=== PATIENT | male | born 1955 | race Caucasian/White ===

== ENCOUNTER 2016-06-28 07:22 | Observation (INO) | payer BC, OTHER ==
[2016-06-28] MEDS ORDERED: NITROGLYCERIN OINT 1 INCH/GM PACKET TOPICAL STA (07:41)
[2016-06-28] MEDS ORDERED: ASPIRIN 81 MG CHEW PO STA (07:41)
[2016-06-28] MEDS ORDERED: NITROGLYCERIN SL TABS 0.4 MG TAB SUBLINGUAL STA (07:41)
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
[2016-06-28 08:19] LABS: Basophils % (A) 1 %; CH 31.5; CHCM 35.1; Eosinophils % (A) 1 %; HCT 44.5 % (39.0-53.0); HDW 2.38; Luc # (Auto) 0.12; Luc % (Auto) 2; Lymphocytes # (A) 2.1 k/uL (1.0-4.8); Lymphocytes % (A) 38 %; MCH 30.3 pg (25.0-35.0); MCHC 33.6 g/dL (31.0-37.0); Mean Platelet Volume 7.2; Monocytes # (A) 0.4 k/uL (0-1.0); Monocytes % (A) 7 %; Neutrophils # (A) 2.9 k/uL (1.3-7.7); Neutrophils % (A) 52 %; RBC 4.94 m/uL (4.30-5.90); RDW 14.5 % (11.5-15.5); WBC 5.5 k/uL (3.8-10.6)
[2016-06-28 08:28] LABS: ALT 28 U/L (21-72); AST 23 U/L (17-59); Alkaline Phosphatase 95 U/L (38-126); Anion Gap 10 mmol/L; Blood Urea Nitrogen 20 mg/dL (9-20); Calcium 9.3 mg/dL (8.4-10.2); Carbon Dioxide 23 mmol/L (22-30); Chloride 107 mmol/L (98-107); Glucose 176 mg/dL (74-99); Non-African American GFR(MDRD) >60 (>60 ml/min/1.73 sqM); Potassium 4.2 mmol/L (3.5-5.1); Sodium 140 mmol/L (137-145); Total Bilirubin 0.4 mg/dL (0.2-1.3); Total Protein 6.9 g/dL (6.3-8.2)
--- NOTE | 2016-06-28 08:29 | XR ---
EXAMINATION TYPE: XR chest 2V DATE OF EXAM: 06/28/2016 8:20 AM COMPARISON: Prior chest x-ray 13 April 2016 HISTORY: Shortness of breath TECHNIQUE: Frontal and lateral views of the chest are obtained. FINDINGS: Some minimal patchy basilar density is noted. No pneumothorax or pleural effusion. There a re overlying cardiac leads. Surgical clips present in the upper abdomen. Cardiomediastinal silhouette , pulmonary vascularity and beatriz are stable. IMPRESSION: Suspect some minimal basilar atelectasis. Follow-up as indicated.
[2016-06-28 08:38] LABS: Prothrombin Time 10.6 sec (9.0-12.0)
[2016-06-28 08:39] LABS: Creatine Kinase 351 U/L (55-170)
[2016-06-28 08:41] LABS: Partial Thromboplastin Time 21.3 sec (22.0-30.0)
[2016-06-28 08:51] LABS: Creatine Kinase MB 2.2 ng/mL (0.0-2.4); Troponin I <0.012 ng/mL (0.000-0.034)
[2016-06-28] MEDS ORDERED: IPRATROPIUM-ALBUTEROL 3 ML NEB INHALATION STA (08:52)
[2016-06-28 10:00] LABS: Amylase 56 U/L (30-110)
[2016-06-28] MEDS ORDERED: LORazepam 2 MG/ML SYRINGE IV STA (10:48)
[2016-06-28] MEDS ORDERED: NITROGLYCERIN SL TABS 0.4 MG TAB SUBLINGUAL PRN (10:51)
[2016-06-28] MEDS ORDERED: RX INFO: IV CONTRAST WAS GIVEN 1 EACH MISC MISCELLANE PRN (10:52)
--- NOTE | 2016-06-28 12:12 | CT ---
EXAMINATION TYPE: CT angio thoracic/abd aorta DATE OF EXAM: 06/28/2016 12:05 PM COMPARISON: NONE HISTORY: c/o chest pain and difficulty breathing CT DLP: 849.6 mGycm Automated exposure control for dose reduction was used. TECHNIQUE: Performed without and with IV Contrast, patient injected with 100 mL of Omnipaque 350. 3D reconstructed images are created on an independent workstation and reviewed.. FINDINGS: No aortic dissection is identified. No aortic aneurysm is evident. Some minimal compressive atelectasis at the right lung base is present. Portion of the thyroid visual ized is normal. Axillary regions are normal. No enlarged adenopathy is evident. The ascending thoraci c aorta at the level of the main pulmonary artery is 3.1 cm. The main pulmonary artery the bifurcatio n is 3.[address] ABDOMEN: Noncontrast imaging through the liver spleen pancreas kidneys appear normal. The gallblad ru surgically absent. Following contrast administration suspicious enhancement is not identified. Sp lenule is present. The adrenal glands are normal. Loops of bowel without contrast are normal. A infer ior pole right renal cyst measuring 2.4 cm is present inferior pole right kidney CT PELVIS: Superior portion of the pelvis within the [id number] is unremarkable the appendix is vi sualized is normal IMPRESSION: NORMAL THORACIC AND ABDOMINAL AORTA.
[2016-06-28] MEDS: NITROGLYCERIN OINT 1 INCH/GM PACKET TOPICAL SCH ×2 (14:06→20:52)
[2016-06-28] MEDS ORDERED: ACETAMINOPHEN TAB 325 MG TAB PO PRN (14:51)
[2016-06-28 15:14] LABS: Creatine Kinase 300 U/L (55-170)
[2016-06-28 15:27] LABS: Creatine Kinase MB 1.5 ng/mL (0.0-2.4); Troponin I <0.012 ng/mL (0.000-0.034)
[2016-06-28 17:01] LABS: Glucose,Whole Blood 129 mg/dL (75-99)
[2016-06-28] MEDS: metFORMIN 500 MG TAB PO SCH ×2 (17:32→23:35)
[2016-06-28] MEDS ORDERED: INSULIN GLARGINE 100 UNIT/ML 10 ML VIAL SQ SCH (21:00)
[2016-06-28 21:33] LABS: Creatine Kinase 260 U/L (55-170)
[2016-06-28 21:47] LABS: Creatine Kinase MB 1.3 ng/mL (0.0-2.4); Troponin I <0.012 ng/mL (0.000-0.034)
[2016-06-29] MEDS: METOPROLOL TARTRATE 12.5 MG TAB PO SCH ×2 (02:04→11:33)
[2016-06-29 02:56] LABS: Cholesterol 219 mg/dL (<200); HDL Cholesterol 37 mg/dL (40-60); Triglycerides 184 mg/dL (<150)
[2016-06-29] MEDS: NITROGLYCERIN OINT 1 INCH/GM PACKET TOPICAL SCH (06:34)
--- NOTE | 2016-06-29 06:53 | CONS ---
DATE OF CONSULTATION: 06/28/2016 REASON FOR THE CONSULTATION: Chest discomfort. HISTORY OF PRESENT ILLNESS: This is a pleasant 60-year-old male patient with a past medical history significant for diabetes as well as hypertension presented to the hospital complaining of chest discomfort. He just was admitted to the hospital in March of 2016 where he presented with chest discomfort and at that point he underwent an echocardiogram which came in to be unremarkable as well as dobutamine stress echocardiogram which came in to be also unremarkable for ischemia. He states that he underwent a heart catheterization at [facility] about 2 years ago and that was unremarkable. Patient describes chest discomfort, as a sharp kind of discomfort, in the middle of the chest, without any radiation to the arms, neck or shoulders and without any associated symptoms. The EKG showed sinus mechanism without any significant ST or T wave abnormalities. The cardiac enzymes were checked and came in to be unremarkable. As a matter of fact, the patient underwent a CTA of the chest and abdominal aorta and that came in to be unremarkable. Past medical history includes: 1. Diabetes. 2. Systemic hypertension. SOCIAL HISTORY: The patient does not smoke or drink alcohol. Current medications include: 1. Aspirin 81 mg p.o. daily. 2. Insulin. 3. Lisinopril 5 mg p.o. daily. 4. Metformin 500 mg p.o. t.i.d. 5. Metoprolol 12.5 mg p.o. b.i.d. 6. Spiriva 1 puff inhalation daily. PHYSICAL EXAMINATION: GENERAL APPEARANCE: The patient does not look in any pain or any distress. His vitals showed the following: Temp is 98.2, heart rate 58, respiratory rate 16, pressure is 102/57 mmHg. Cardiovascular examination shows regular rate and rhythm. Respiratory examination shows clear breathing sounds bilaterally. EXTREMITY EXAMINATION: No pedal edema was noted. DIAGNOSTIC WORKUP: The EKG as described above showed sinus mechanism without any significant ST or T wave abnormalities. The chest x-ray showed minimal basilar atelectasis. Blood work showed the following: WBC is 5.5, hemoglobin 15.0, platelet is 254. D-dimer is 0.35. Sodium 140, potassium 4.2, BUN 20, creatinine 1.05. Troponin came in to be unremarkable. ASSESSMENT: 1. Atypical chest discomfort. 2. Diabetes type II. 3. Systemic hypertension. PLAN: 1. The cardiac workup came in to be unremarkable including the EKG and cardiac enzymes. 2. I will obtain a copy of the heart catheterization which was performed 2 years ago at [facility]. 3. Please note that the patient just underwent a stress test in March 2016 and that came in to be unremarkable. 4. I would not recommend proceeding with any tests at this point of time. 5. Will continue following up with him.
[2016-06-29 07:04] LABS: Glucose,Whole Blood 117 mg/dL (75-99)
[2016-06-29] MEDS ORDERED: TIOTROPIUM 18 MCG/PUFF INHALER INHALATION SCH (08:00)
[2016-06-29] MEDS ORDERED: LISINOPRIL 5 MG TAB PO SCH (09:00)
[2016-06-29] MEDS ORDERED: ASPIRIN 325 MG TAB PO SCH (09:00)
[2016-06-29] MEDS ORDERED: ASPIRIN 81 MG CHEW PO SCH (09:00)
--- NOTE | 2016-06-29 09:03 | P.PN ---
Subjective Principal diagnosis: Chest pain This is a pleasant 60-year-old gentleman with a past medical history significant for diabetes and hypertension presented to the emergency room complaining of chest discomfort. He was admitted to the hospital in March 2016 with a chest discomfort and underwent dobutamine stress echocardiogram which came in to be unremarkable. He presented back to the hospital this time complaining of atypical chest discomfort and also complaining of epigastric discomfort. The cardiac workup of EKG and enzymes came in to be unremarkable. He underwent a CTA of the chest and abdomen which showed normal aorta. He stated that he underwent a heart catheterization at [facility] about 2 years ago. We contacted the hospital and we did not get anything and we'll try to contact him again to obtain a copy of the heart catheterization. In the mean while the patient need to get up and around to see if he is symptomatic. Objective - Vital Signs Vital signs: Vital Signs Temp 97.9 F 06/29/16 08:00 Pulse 66 06/29/16 08:00 Resp 18 06/29/16 08:00 BP 109/62 06/29/16 08:00 Pulse Ox 96 06/29/16 08:00 Intake & Output 06/28/16 06/29/16 06/29/16 18:59 06:59 18:59 Intake Total 836 Balance 836 Weight 90.7 kg Intake: Oral 836 Other: Voiding Method Toilet Toilet # Voids 2 - Constitutional General appearance: Present: no acute distress - Respiratory Respiratory: bilateral: CTA - Cardiovascular Rhythm: regular Heart sounds: normal: S1, S2 - Labs CBC & Chem 7: 06/28/16 08:03 06/28/16 08:03 Labs: Abnormal Lab Results - Last 24 Hours (Table) 06/28/16 06/28/16 06/28/16 Range/Units 14:05 16:59 20:41 POC Glucose (mg/dL) 129 H (75-99) mg/dL Total Creatine Kinase 300 H 260 H (55-170) U/L 06/29/16 Range/Units 07:01 POC Glucose (mg/dL) 117 H (75-99) mg/dL Total Creatine Kinase (55-170) U/L Assessment and Plan Plan: Assessment #1 atypical chest discomfort #2 epigastric discomfort #3 multiple comorbid conditions Plan #1 the patient was ruled out for acute coronary event #2 I'll obtain a copy of the heart catheterization #3 get the patient up and around
[2016-06-29] MEDS ORDERED: ENOXAPARIN 40 MG/0.4 ML SYRINGE SQ SCH (11:00)
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
[2016-06-29] MEDS: metFORMIN 500 MG TAB PO SCH (11:34)
[2016-06-29 11:58] VITALS: BP 120/76; PULSE 62; RESP 16; TEMP 98.1
[2016-06-29 12:13] LABS: Glucose,Whole Blood 102 mg/dL (75-99)
--- NOTE | 2016-06-30 10:08 | DS ---
DATE OF ADMISSION: 06/28/2016 DATE OF DISCHARGE: 06/29/2016 FINAL DIAGNOSES: 1. Chest pain; could be psychosomatic/musculoskeletal. 2. Chronic long-standing functional abdominal pain with extensive work-up in the past. 3. Chronic obstructive pulmonary disease in an ex-smoker. 4. Diabetes mellitus, type 2, chronically on insulin. 5. Gastroesophageal reflux disease. 6. Diabetes mellitus type 2 causing peripheral neuropathy. 7. Benign prostatic hypertrophy. 8. Major depressive disorder, recurrent, without psychosis, in remission. 9. 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 10. Peptic ulcer disease, history of. HOSPITAL COURSE: This patient has had chest and abdominal pain. CT scan of the chest negative for any aneurysm or dissection. Patient's cardiac catheterization report from [facility] showed only minimal 20% disease. Patient has had chronic abdominal pain off and on for a long time and all the work-up has been negative. The patient has peptic ulcer disease. The patient did tolerate his diet before discharge. On exam: LUNGS: Clear. CARDIOVASCULAR: First and second heart sounds muffled. ABDOMEN: Soft, nontender. CONSULTATIONS: Dr. Adorno from cardiology. DISCHARGE MEDICATIONS: 1. Glucophage 500 mg p.o. t.i.d. 2. Toujeo 25 units subcu at bedtime. 3. Prinivil 5 mg p.o. daily. 4. Alimpta 1 puff daily. 5. Aspirin 81 mg p.o. daily. 6. Albuterol 1 to 2 puffs every 6 hours p.r.n. 7. Lopressor 12.5 p.o. b.i.d. Follow up with Dr. Norman in one week, follow up with Dr. Maribeth Robert in 2 weeks.
== END 2016-06-29 14:37 | disposition home or self-care (01) ==
LOC: EC 07:22 → 3OBS 10:51
PROVIDERS: ADMIT Hospitalist; ATTEND Hospitalist
DX: I25.10 Atherosclerotic heart disease of native coronary artery without angina pectoris (principal); R07.9 Chest pain, unspecified; E11.42 Type 2 diabetes mellitus with diabetic polyneuropathy; I10 Essential (primary) hypertension; J44.9 Chronic obstructive pulmonary disease, unspecified; F33.9 Major depressive disorder, recurrent, unspecified; G40.909 Epilepsy, unspecified, not intractable, without status epilepticus; H54.61 Unqualified visual loss, right eye, normal vision left eye; I25.2 Old myocardial infarction; J45.909 Unspecified asthma, uncomplicated; K21.9 Gastro-esophageal reflux disease without esophagitis; N40.0 Benign prostatic hyperplasia without lower urinary tract symptoms; Z79.4 Long term (current) use of insulin; Z79.82 Long term (current) use of aspirin; Z87.11 Personal history of peptic ulcer disease; Z87.891 Personal history of nicotine dependence; Z88.0 Allergy status to penicillin; Z88.8 Allergy status to other drugs, medicaments and biological substances; Z79.899 Other long term (current) drug therapy; Z79.84 Long term (current) use of oral hypoglycemic drugs
CPT/HCPCS: 36415; 94640 ×2; 93005; 85379; 83880; 80061; 80053; 82150; 82550; 82553; 83690; 83735; 84484; 85025; 85610; 85730; 71020; 75635; 71275; 99285; 96374; G0378 ×2; J2060; Q9967

== ENCOUNTER → 2016-11-07 | Outpatient (CLI) | payer BC, OTHER ==
[2016-11-07 11:21] LABS: Basophils % (A) 0 %; CH 31.4; CHCM 35.2; Eosinophils % (A) 1 %; HCT 49.9 % (39.0-53.0); HDW 2.42; HGB 17.3 gm/dL (13.0-17.5); Luc # (Auto) 0.18; Luc % (Auto) 2; Lymphocytes # (A) 2.3 k/uL (1.0-4.8); Lymphocytes % (A) 30 %; MCH 31.1 pg (25.0-35.0); MCHC 34.7 g/dL (31.0-37.0); MCV 89.6 fL (80.0-100.0); Mean Platelet Volume 6.8; Monocytes # (A) 0.5 k/uL (0-1.0); Monocytes % (A) 6 %; Neutrophils # (A) 4.5 k/uL (1.3-7.7); Neutrophils % (A) 60 %; RBC 5.57 m/uL (4.30-5.90); RDW 12.9 % (11.5-15.5); WBC 7.5 k/uL (3.8-10.6); WBC (Perox) 6.98
[2016-11-07 11:38] LABS: ALT 22 U/L (21-72); AST 19 U/L (17-59); Alkaline Phosphatase 91 U/L (38-126); Amylase 52 U/L (30-110); Anion Gap 11 mmol/L; Blood Urea Nitrogen 26 mg/dL (9-20); Calcium 9.8 mg/dL (8.4-10.2); Carbon Dioxide 23 mmol/L (22-30); Chloride 100 mmol/L (98-107); Glucose 364 mg/dL (74-99); Non-African American GFR(MDRD) >60 (>60 ml/min/1.73 sqM); Potassium 4.5 mmol/L (3.5-5.1); Sodium 134 mmol/L (137-145); Total Bilirubin 0.8 mg/dL (0.2-1.3); Total Protein 7.4 g/dL (6.3-8.2)
== END ==
LOC: LABWHC1 10:51
PROVIDERS: ATTEND Family Medicine
DX: R11.2 Nausea with vomiting, unspecified (principal)
CPT/HCPCS: 36415; 80053; 82009; 82150; 83690; 85025

== ENCOUNTER 2016-11-08 16:27 | Emergency (ER) | payer BC, OTHER ==
[2016-11-08 16:46] VITALS: TEMP 98.4
[2016-11-08 16:46] LABS: Glucose,Whole Blood 240 mg/dL (75-99)
[2016-11-08] MEDS ORDERED: SODIUM CHLORIDE 0.9% 1,000 ML IV STA ×2 (17:31)
[2016-11-08] MEDS ORDERED: ONDANSETRON 4 MG/2 ML VIAL IVP STA (17:31)
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
[2016-11-08 18:09] LABS: Basophils % (A) 0 %; CH 31.7; CHCM 35.2; Eosinophils % (A) 1 %; HCT 51.8 % (39.0-53.0); HDW 2.26; HGB 17.9 gm/dL (13.0-17.5); Luc % (Auto) 3; Lymphocytes # (A) 2.5 k/uL (1.0-4.8); Lymphocytes % (A) 35 %; MCH 31.1 pg (25.0-35.0); MCHC 34.4 g/dL (31.0-37.0); MCV 90.4 fL (80.0-100.0); Mean Platelet Volume 6.7; Monocytes # (A) 0.4 k/uL (0-1.0); Monocytes % (A) 5 %; Neutrophils # (A) 4.1 k/uL (1.3-7.7); Neutrophils % (A) 56 %; RBC 5.74 m/uL (4.30-5.90); WBC 7.3 k/uL (3.8-10.6); WBC (Perox) 7.02
[2016-11-08 18:13] LABS: ALT 20 U/L (21-72); AST 19 U/L (17-59); Alkaline Phosphatase 86 U/L (38-126); Anion Gap 12 mmol/L; Blood Urea Nitrogen 26 mg/dL (9-20); Calcium 9.7 mg/dL (8.4-10.2); Carbon Dioxide 19 mmol/L (22-30); Chloride 105 mmol/L (98-107); Glucose 265 mg/dL (74-99); INR 1.1 (<1.1); Magnesium 1.7 mg/dL (1.6-2.3); Non-African American GFR(MDRD) >60 (>60 ml/min/1.73 sqM); Potassium 4.1 mmol/L (3.5-5.1); Prothrombin Time 10.7 sec (9.0-12.0); Sodium 136 mmol/L (137-145); Total Bilirubin 0.7 mg/dL (0.2-1.3); Total Protein 7.5 g/dL (6.3-8.2)
[2016-11-08 18:22] LABS: Partial Thromboplastin Time 20.9 sec (22.0-30.0)
[2016-11-08 18:25] LABS: Creatine Kinase 72 U/L (55-170)
[2016-11-08 18:36] LABS: Creatine Kinase MB 0.7 ng/mL (0.0-2.4); Troponin I <0.012 ng/mL (0.000-0.034)
[2016-11-08 18:50] VITALS: RESP 18
[2016-11-08] MEDS ORDERED: DICYCLOMINE 10 MG/ML 2 ML AMP IM STA (18:55)
[2016-11-08] MEDS ORDERED: PANTOPRAZOLE 40 MG/10 ML VIAL IVP STA (18:55)
[2016-11-08 19:27] VITALS: BP 114/72; PULSE 71
== END 2016-11-08 19:37 | disposition home or self-care (01) ==
LOC: EC 16:27
DX: E86.0 Dehydration (principal); R11.2 Nausea with vomiting, unspecified; R42 Dizziness and giddiness; E11.9 Type 2 diabetes mellitus without complications; Z87.891 Personal history of nicotine dependence; Z79.4 Long term (current) use of insulin; Z79.899 Other long term (current) drug therapy; Z88.0 Allergy status to penicillin; Z88.8 Allergy status to other drugs, medicaments and biological substances; Z87.898 Personal history of other specified conditions
CPT/HCPCS: 36415; 93005; 80053; 82550; 82553; 82009; 83605; 83690; 83735; 84100; 84484; 85025; 85610; 85730; 99284; 96374; 96375; 96361 ×2; 96372; J0500; J2405; C9113

== ENCOUNTER 2017-11-18 01:27 | Inpatient (IN) | payer BC, OTHER ==
[2017-11-18] MEDS ORDERED: ONDANSETRON 4 MG/2 ML VIAL IVP STA ×3 (01:53→06:13)
[2017-11-18 02:02] LABS: Basophils % (A) 0 %; Eosinophils % (A) 1 %; HCT 49.1 % (39.0-53.0); HGB 16.4 gm/dL (13.0-17.5); Lymphocytes % (A) 29 %; MCHC 33.5 g/dL (31.0-37.0); MCV 89.5 fL (80.0-100.0); Mean Platelet Volume 7.1; Monocytes # (A) 0.5 k/uL (0-1.0); Monocytes % (A) 7 %; Neutrophils # (A) 4.2 k/uL (1.3-7.7); Neutrophils % (A) 62 %; Platelet Count 227 k/uL (150-450); RBC 5.49 m/uL (4.30-5.90); RDW 13.7 % (11.5-15.5); WBC 6.8 k/uL (3.8-10.6)
[2017-11-18 02:15] LABS: ALT 23 U/L (21-72); AST 18 U/L (17-59); Albumin 3.9 g/dL (3.5-5.0); Alcohol <10 mg/dL; Alkaline Phosphatase 94 U/L (38-126); Amylase 82 U/L (30-110); Anion Gap 14 mmol/L; Blood Urea Nitrogen 23 mg/dL (9-20); Calcium 10.2 mg/dL (8.4-10.2); Carbon Dioxide 20 mmol/L (22-30); Chloride 107 mmol/L (98-107); Glucose 316 mg/dL (74-99); Lipase 333 U/L (23-300); Magnesium 1.7 mg/dL (1.6-2.3); Potassium 4.4 mmol/L (3.5-5.1); Sodium 141 mmol/L (137-145); Total Bilirubin 0.5 mg/dL (0.2-1.3); Total Protein 6.5 g/dL (6.3-8.2)
--- NOTE | 2017-11-18 02:24 | XR ---
EXAM: XR Chest, 1 View CLINICAL HISTORY: Chest pain TECHNIQUE: Frontal view of the chest. COMPARISON: Chest x-ray dated 06/28/2016 FINDINGS: Lungs: Unremarkable. No consolidation. Pleural space: Unremarkable. No pneumothorax. Heart: Unremarkable. No cardiomegaly. Mediastinum: Unremarkable. Bones/joints: Unremarkable. IMPRESSION: Normal chest x-ray.
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
[2017-11-18 02:28] LABS: Partial Thromboplastin Time 20.1 sec (22.0-30.0)
[2017-11-18 02:32] LABS: Creatine Kinase 122 U/L (55-170)
[2017-11-18 02:45] LABS: Creatine Kinase MB 0.9 ng/mL (0.0-2.4); Troponin I <0.012 ng/mL (0.000-0.034)
[2017-11-18] MEDS ORDERED: MORPHINE SULFATE 2 MG/ML SYRINGE IV STA (02:56)
[2017-11-18 05:47] LABS: Appearance,Urine Clear (Clear); Bilirubin,Urine Negative (Negative); Blood,Urine Negative (Negative); Color,Urine Yellow; Glucose,Urine (UA) 4+ (Negative); Hyaline Casts,Urine 1 /lpf (0-2); Leukocyte Esterase,Urine Small (Negative); Mucus,Urine Rare /hpf; Nitrite,Urine Negative (Negative); PH, Urine 5.5 (5.0-8.0); Protein,Urine Negative (Negative); RBC,Urine 3 /hpf (0-5); Specific Gravity,Urine 1.028 (1.001-1.035); Squamous Epithelial Cell,Urine <1 /hpf (0-4); Urobilinogen,Urine <2.0 mg/dL (<2.0); WBC,Urine 5 /hpf (0-5)
[2017-11-18 05:50] LABS: Ketones,Urine 2+ (Negative)
[2017-11-18] MEDS ORDERED: INSULIN REGULAR 100 UNIT/ML VIAL IV STA (05:50)
[2017-11-18] MEDS ORDERED: SODIUM CHLORIDE 0.9% 1,000 ML IV ONE ×2 (05:51)
[2017-11-18 06:11] LABS: Glucose,Whole Blood 312 mg/dL (75-99)
[2017-11-18] MEDS ORDERED: ONDANSETRON 4 MG/2 ML VIAL IVP PRN (07:00)
[2017-11-18] MEDS ORDERED: NALOXONE 0.4 MG/ML 1 ML VIAL IV PRN (07:00)
[2017-11-18] MEDS ORDERED: BISMUTH SUBSALICYLATE 4,192 MG/240 ML BOTTLE PO PRN (07:02)
[2017-11-18] MEDS: SODIUM CHLORIDE 0.9% 1,000 ML IV SCH ×3 (07:25→23:50)
[2017-11-18] MEDS ORDERED: IPRATROPIUM 0.5 MG/2.5 ML NEBU INHALATION PRN (08:00)
[2017-11-18] MEDS: INSULIN ASPART 100 UNIT/ML 1 ML 10 ML VIAL SQ SCH ×4 (08:24→20:43)
[2017-11-18] MEDS ORDERED: FAMOTIDINE 20 MG TAB PO SCH (09:00)
[2017-11-18 09:29] VITALS: BMI 21.4
--- NOTE | 2017-11-18 10:01 | CONS ---
CONSULTATION DATE OF CONSULTATION: 11/18/2017 REQUESTING PHYSICIAN: Dr. Norman. REASON FOR CONSULTATION: Abdominal pain, nausea, vomiting. HISTORY OF PRESENT ILLNESS: The patient is a 52-year-old white male with history of chronic pancreatitis related to alcohol abuse with multiple hospitalizations in the past. The patient was admitted to hospital with epigastric pain associated with nausea and vomiting that started yesterday morning after eating sandwich. He felt that his symptoms were related to pancreatitis and came to the emergency room and subsequently admitted to the hospital for further evaluation. All night he had several episodes of emesis. No coffee- grounds emesis. This morning he tried some clear liquids after which had two episodes of bilious emesis and the abdominal pain has resolved. Last hospitalization for acute pancreatitis was in June of this year. The patient has history of heavy alcohol abuse in the past. He quit drinking in 2011. No prior history of peptic ulcer disease. He occasionally uses Motrin on and off. He reports no fever, chills, night sweats. PAST MEDICAL HISTORY: Significant for hypertension, coronary artery disease, asthma, COPD, diabetes mellitus, GERD and VT. PAST SURGICAL HISTORY: Cardiac cath, cholecystectomy, hernia repair, EGD, colonoscopy in the past. MEDICATIONS: At home include Phenergan, Motrin, ProAir, Ellipta, insulin. ALLERGIES: ALLERGIES TO PENICILLIN AND SIMVASTATIN. SOCIAL HISTORY: Chronic smoker. Heavy alcohol abuse in the past. Quit in 2011. FAMILY HISTORY: Father of alcoholism. Mother had no medical problems. PHYSICAL EXAMINATION: He appears comfortable. No apparent distress. VITAL SIGNS: Stable. Blood pressure is 132/88, pulse rate 77, and afebrile. HEENT examination unremarkable. Conjunctivae pink. Sclerae anicteric. Oral cavity no lesions. NECK: No jugular venous distention or lymph node enlargement. CHEST was clear to auscultation. HEART: Regular rate and rhythm. ABDOMEN: Soft. Bowel sounds are positive. It was nontender and nondistended. Liver and spleen not palpable. Bowel sounds are positive. EXTREMITIES: No pedal edema. SKIN: No rashes. NEUROLOGIC: Alert and oriented x3. No focal deficits. LAB: WBC 6.8, hemoglobin 16.4, platelets normal. PT/INR is normal. Basic metabolic panel is within normal limits. Blood sugar is at . Amylase 82, lipase 333. Serum alcohol level less than 10. IMPRESSION: This is a patient with history of chronic pancreatitis related to alcohol abuse, admitted to hospital with acute onset of epigastric pain associated with nausea, vomiting that started yesterday afternoon. He had several episodes of emesis. No coffee-grounds emesis. Amylase was normal. Lipase was minimally elevated at 333. Symptoms probably related to chronic relapsing pancreatitis. Doubt peptic ulcer disease. RECOMMENDATIONS: 1. Start Protonix 40 mg q.12 hours and DC Pepcid. 2. Antiemetics as needed. 3. Continue with a clear liquid diet and we will follow the patient closely during the hospital stay. Thank you for this consultation. MMODL / IJN: [id number] /
[2017-11-18] MEDS: PANTOPRAZOLE 40 MG/10 ML VIAL IVP SCH ×2 (10:51→20:42)
[2017-11-18] MEDS: INSULIN DETEMIR 100 UNIT/ML 10 ML VIAL SQ SCH (10:53)
[2017-11-18 12:31] LABS: Glucose,Whole Blood 223 mg/dL (75-99)
[2017-11-18] MEDS: PROMETHAZINE 25 MG TAB PO SCH ×2 (12:48→16:58)
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
[2017-11-18 17:09] LABS: Glucose,Whole Blood 189 mg/dL (75-99)
[2017-11-18 20:55] LABS: Glucose,Whole Blood 164 mg/dL (75-99)
[2017-11-19] MEDS: PROMETHAZINE 25 MG TAB PO SCH ×5 (00:54→23:40)
[2017-11-19 07:22] LABS: Glucose,Whole Blood 179 mg/dL (75-99)
[2017-11-19] MEDS: INSULIN ASPART 100 UNIT/ML 1 ML 10 ML VIAL SQ SCH ×4 (07:42→20:51)
[2017-11-19] MEDS: PANTOPRAZOLE 40 MG/10 ML VIAL IVP SCH ×2 (07:43→21:11)
[2017-11-19] MEDS: SODIUM CHLORIDE 0.9% 1,000 ML IV SCH ×3 (08:20→23:40)
[2017-11-19] MEDS: INSULIN DETEMIR 100 UNIT/ML 10 ML VIAL SQ SCH (09:34)
[2017-11-19 12:12] LABS: Glucose,Whole Blood 210 mg/dL (75-99)
[2017-11-19 17:03] LABS: Glucose,Whole Blood 96 mg/dL (75-99)
--- NOTE | 2017-11-19 18:05 | PN ---
PROGRESS NOTE DATE OF SERVICE: 11/19/2017 PRESENTING COMPLAINT: Nausea, vomiting. INTERVAL HISTORY: This patient presented with relapsing acute pancreatitis. Some abdominal pain is present. Slight nausea. Not much of an appetite. at the bedside. REVIEW OF SYSTEMS: Done for constitutional, cardiovascular, GI, pulmonary; relevant findings as above. CURRENT MEDICATIONS: Reviewed. PHYSICAL EXAMINATION: Temperature 98.3, pulse 58, respiration 18, blood pressure 109/68, pulse ox 95% on room air. GENERAL APPEARANCE: Lying in bed, awake. EYES: Pupils equal. Conjunctivae normal. HEENT: External appearance of nose and ears normal. Oral cavity normal. NECK: JVD not raised. Mass not palpable. RESPIRATORY: Effort normal. LUNGS: Fair air entry. CARDIOVASCULAR: First and second sounds normal. No edema. ABDOMEN: Soft. Some minimal epigastric tenderness. PSYCHIATRY: Alert and oriented x3. Mood and affect normal. INVESTIGATIONS: Accu-Cheks are noted. ASSESSMENT: 1. Acute chronic relapsing pancreatitis with clinical improvement. 2. Chronic long-term non-organic abdominal pain. Extensive workup had been negative. 3. Chronic obstructive pulmonary disease in an ex-smoker. 4. Diabetes mellitus, type 2, chronically on insulin. 5. Gastroesophageal reflux disease. 6. Diabetes mellitus, type 2, causing peripheral neuropathy. 7. Benign prostatic hypertrophy. 8. Major depressive disorder, recurrent, in remission. 9. 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 PLAN: At this point we will keep patient on clear liquid diet. Once the nausea is better, patient's diet can be advanced. Care was discussed with the patient. Encouraged to ambulate. Patient to continue with his IV fluids. MMFERNL / BRYNNN: [id number] /
--- NOTE | 2017-11-19 18:19 | PN ---
PROGRESS NOTE DATE OF DICTATION: 11/19/2017 Patient is a 62-year-old white male with history of chronic pancreatitis related to alcohol use diagnosed several years ago. He was admitted to the hospital with nausea, vomiting and some abdominal pain. This morning he felt better, but this afternoon he started complaining of some epigastric discomfort. He had no further episodes of nausea or vomiting. He denies any fever, chills or night sweats. PHYSICAL EXAMINATION: He appears comfortable. No apparent distress. VITAL SIGNS: Stable. Blood pressure is 109/68, pulse rate 58, temperature 98. HEENT EXAMINATION: Unremarkable. Conjunctivae pink. Sclerae anicteric. Oral cavity no lesions. NECK: No JVD or lymph node enlargement. CHEST: Clear to auscultation. HEART: Regular rate and rhythm. ABDOMEN: Soft. There was mild tenderness in the epigastric area. Rest of the abdomen was benign. Bowel sounds are positive. No organomegaly. EXTREMITIES: No pedal edema. SKIN: No rashes. NEUROLOGIC: Alert and oriented x3. No focal deficits. LABS: No labs from today. IMPRESSION: Epigastric pain associated with nausea, vomiting, probably related to chronic pancreatitis, presently on antiemetics and Protonix; still remains symptomatic, requesting pain medications. RECOMMENDATIONS: 1. Continue with a clear liquid diet. 2. Continue with symptomatic and supportive care. 3. Tylenol as needed for pain control. 4. If he has persistence, I will consider proceeding with an upper endoscopy in the next 24-48 hours. Thank you for this consultation. MADISON / BRYNNN: [id number] /
[2017-11-19 20:42] LABS: Glucose,Whole Blood 115 mg/dL (75-99)
[2017-11-19 23:11] VITALS: RESP 18
[2017-11-20] MEDS: PROMETHAZINE 25 MG TAB PO SCH ×2 (06:07→12:12)
[2017-11-20] MEDS: SODIUM CHLORIDE 0.9% 1,000 ML IV SCH ×2 (06:08→08:49)
[2017-11-20 07:14] LABS: Glucose,Whole Blood 149 mg/dL (75-99)
[2017-11-20] MEDS: PANTOPRAZOLE 40 MG/10 ML VIAL IVP SCH (08:46)
[2017-11-20] MEDS: INSULIN DETEMIR 100 UNIT/ML 10 ML VIAL SQ SCH (08:46)
[2017-11-20] MEDS: INSULIN ASPART 100 UNIT/ML 1 ML 10 ML VIAL SQ SCH ×2 (08:47→12:12)
[2017-11-20 08:50] LABS: Basophils % (A) 1 %; Eosinophils # (A) 0.1 k/uL (0-0.7); Eosinophils % (A) 1 %; HCT 46.5 % (39.0-53.0); HGB 15.2 gm/dL (13.0-17.5); Lymphocytes % (A) 37 %; MCH 29.6 pg (25.0-35.0); MCHC 32.8 g/dL (31.0-37.0); MCV 90.3 fL (80.0-100.0); Mean Platelet Volume 6.5; Monocytes # (A) 0.3 k/uL (0-1.0); Monocytes % (A) 6 %; Neutrophils % (A) 53 %; Platelet Count 176 k/uL (150-450); RBC 5.15 m/uL (4.30-5.90); RDW 13.9 % (11.5-15.5); WBC 5.6 k/uL (3.8-10.6)
[2017-11-20 09:13] LABS: Anion Gap 9 mmol/L; Blood Urea Nitrogen 9 mg/dL (9-20); Calcium 7.8 mg/dL (8.4-10.2); Carbon Dioxide 23 mmol/L (22-30); Chloride 107 mmol/L (98-107); Glucose 210 mg/dL (74-99); Potassium 3.6 mmol/L (3.5-5.1); Sodium 139 mmol/L (137-145)
[2017-11-20 12:11] LABS: Glucose,Whole Blood 203 mg/dL (75-99)
--- NOTE | 2017-11-20 14:15 | P.PN ---
Subjective Progress Note Date: 11/20/17 Principal diagnosis: Chronic pancreatitis Admitted with nausea vomiting upper abdominal pain feeling better. Requesting diet advancement. History of remote EtOH abuse. Objective - Vital Signs Vital signs: Vital Signs Temp 97.7 F 11/20/17 06:16 Pulse 56 L 11/20/17 06:16 Resp 18 11/20/17 06:16 BP 118/67 11/20/17 06:16 Pulse Ox 97 11/20/17 07:54 Intake & Output 11/19/17 11/20/17 11/20/17 18:59 06:59 18:59 Intake Total 600 1044 Output Total 1875 800 Balance -1275 -800 1044 Weight 68 kg Intake: Oral 600 1044 Output: Gastric Drainage 100 Urine 1775 800 Other: Voiding Method Toilet Urinal # Voids 2 1 - Exam General appearance: The patient is alert, oriented, in no acute distress. HET: Head is normocephalic and atraumatic. Pupils are equal and reactive. Oropharynx is clear without lesions. Neck: Supple without lymphadenopathy. Trachea midline. Heart: S1 S2. Regular rate and rhythm. Lungs: No crackles or wheezes are heard. Abdomen: Soft, very mild midepigastric tenderness, nondistended with bowel sounds. No peritoneal signs. No palpable organomegaly or masses. Extremities: Normal skin color and turgor. No cyanosis, rash, ulceration, clubbing, or edema. Radial and pedal pulses are 2/4 bilaterally. Neurological: No focal deficits. Strength and sensation are grossly intact. - Labs CBC & Chem 7: 11/20/17 08:23 11/20/17 08:23 Labs: Abnormal Lab Results - Last 24 Hours (Table) 11/19/17 11/20/17 11/20/17 Range/Units 20:37 06:54 08:23 Glucose 210 H (74-99) mg/dL POC Glucose (mg/dL) 115 H 149 H (75-99) mg/dL Calcium 7.8 L (8.4-10.2) mg/dL 11/20/17 Range/Units 11:44 Glucose (74-99) mg/dL POC Glucose (mg/dL) 203 H (75-99) mg/dL Calcium (8.4-10.2) mg/dL Assessment and Plan (1) Abdominal pain Narrative/Plan: 62-year-old male admitted with acute epigastric pain nausea vomiting history of EtOH abuse pancreatitis symptoms probably related to chronic pancreatitis with clinical improvement. Current Visit: Yes Status: Acute Code(s): R10.9 - UNSPECIFIED ABDOMINAL PAIN SNOMED Code(s): 63701491 (2) History of ETOH abuse Current Visit: No Status: Acute Code(s): Z87.898 - PERSONAL HISTORY OF OTHER SPECIFIED CONDITIONS SNOMED Code(s): 536609626 (3) History of pancreatitis Current Visit: No Status: Acute Code(s): Z87.19 - PERSONAL HISTORY OF OTHER DISEASES OF THE DIGESTIVE SYSTEM SNOMED Code(s): 87135663053457 Plan: 1. Low-fat diet if tolerated agreeable for discharge. Assessment and plan a care discussed with Dr. Robert
[2017-11-20 14:55] VITALS: BP 125/76; PULSE 74; TEMP 97.5
--- NOTE | 2017-11-20 23:36 | DS ---
DISCHARGE SUMMARY DATE OF ADMISSION: 11/18/2017. DATE OF DISCHARGE: 11/20/2017 FINAL DIAGNOSES: 1. Acute chronic relapsing pancreatitis. 2. Chronic obstructive pulmonary disease in an ex-smoker. 3. Diabetes mellitus type 2, chronically on insulin. 4. Gastroesophageal reflux disease. 5. Diabetes mellitus type 2 causing peripheral neuropathy. 6. Benign prostatic hypertrophy. 7. Major depressive disorder, recurrent, in remission. 8. 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 HOSPITAL COURSE: This patient presented with abdominal pain felt to be acute chronic relapsing pancreatitis, managed conservatively with IV fluids. Diet was scaled back. Doing much better at the time of discharge. EXAMINATION: ABDOMEN: Soft, nontender. Lungs are clear. CONSULTATION: Dr. Victorino Robert from GI. DISCHARGE MEDICATIONS: 1. Insulin Lantus 25 units subcu daily. 2. Prilosec 20 mg with breakfast. 3. Other home medications to continue. FOLLOWUP: With Dr. Victorino Robert on 11/29/2017. Follow up with Dr. Norman on 01/23/2018. The patient's diet soft, bland, low-fat, carbohydrate consistent. MMODL / IJN: [id number] /
== END 2017-11-20 15:43 | disposition home or self-care (01) | DRG 439 ==
LOC: EC 01:27 → 4MS4W 07:00 → UNDOADMOB 07:00 → EC 07:28
PROVIDERS: ADMIT Hospitalist; ATTEND Hospitalist
DX: K85.90 Acute pancreatitis without necrosis or infection, unspecified (principal); F33.40 Major depressive disorder, recurrent, in remission, unspecified; K86.0 Alcohol-induced chronic pancreatitis; E11.42 Type 2 diabetes mellitus with diabetic polyneuropathy; E11.65 Type 2 diabetes mellitus with hyperglycemia; F17.200 Nicotine dependence, unspecified, uncomplicated; G40.909 Epilepsy, unspecified, not intractable, without status epilepticus; H54.7 Unspecified visual loss; I10 Essential (primary) hypertension; I25.10 Atherosclerotic heart disease of native coronary artery without angina pectoris; I25.2 Old myocardial infarction; J44.9 Chronic obstructive pulmonary disease, unspecified; K21.9 Gastro-esophageal reflux disease without esophagitis; K25.9 Gastric ulcer, unspecified as acute or chronic, without hemorrhage or perforation; N40.0 Benign prostatic hyperplasia without lower urinary tract symptoms; Z79.4 Long term (current) use of insulin; Z87.11 Personal history of peptic ulcer disease; Z88.0 Allergy status to penicillin; Z88.8 Allergy status to other drugs, medicaments and biological substances; Z90.49 Acquired absence of other specified parts of digestive tract; Z81.1 Family history of alcohol abuse and dependence; Z79.1 Long term (current) use of non-steroidal anti-inflammatories (NSAID); Z79.899 Other long term (current) drug therapy
CPT/HCPCS: 36415; 71045; 80048; 80053; 80320; 81001; 82009; 82150; 82550; 82553; 83690; 83735; 84484; 85025; 85610; 85730; 93005; 94760; 96361; 96374; 96376; 99285

== ENCOUNTER 2018-08-20 22:58 | Observation (INO) | payer OTHER ==
[2018-08-20] MEDS ORDERED: ONDANSETRON 4 MG/2 ML VIAL IVP STA (23:19)
[2018-08-20] MEDS ORDERED: HYDROmorphone 1 MG/ML 1 ML SYRINGE IVP STA (23:19)
[2018-08-20] MEDS ORDERED: SODIUM CHLORIDE 0.9% 2,000 ML IV ONE (23:19)
[2018-08-20 23:31] LABS: Basophils % (A) 0 %; Eosinophils # (A) 0.1 k/uL (0-0.7); Eosinophils % (A) 1 %; HGB 17.6 gm/dL (13.0-17.5); Lymphocytes # (A) 2.4 k/uL (1.0-4.8); Lymphocytes % (A) 27 %; MCH 30.4 pg (25.0-35.0); MCHC 33.9 g/dL (31.0-37.0); MCV 89.7 fL (80.0-100.0); Mean Platelet Volume 6.6; Monocytes # (A) 0.5 k/uL (0-1.0); Monocytes % (A) 6 %; Neutrophils # (A) 5.5 k/uL (1.3-7.7); Neutrophils % (A) 63 %; Platelet Count 241 k/uL (150-450); RDW 13.6 % (11.5-15.5); WBC 8.7 k/uL (3.8-10.6)
[2018-08-20 23:40] LABS: Albumin 4.4 g/dL (3.5-5.0); Calcium 9.8 mg/dL (8.4-10.2); Magnesium 1.8 mg/dL (1.6-2.3); Potassium 4.6 mmol/L (3.5-5.1); Total Bilirubin 0.9 mg/dL (0.2-1.3); Total Protein 7.6 g/dL (6.3-8.2)
--- NOTE | 2018-08-20 23:49 | XR ---
EXAM: XR Chest, 2 Views CLINICAL HISTORY: Chest Pain TECHNIQUE: Frontal and lateral views of the chest. COMPARISON: 11/18/2017 FINDINGS: Lungs: Unremarkable. No consolidation. Pleural space: Unremarkable. No pneumothorax. Heart: Unremarkable. No cardiomegaly. Mediastinum: Unremarkable. Bones/joints: No acute osseous abnormality. Tubes, lines and devices: Telemetry leads overlie the patient. IMPRESSION: No acute cardiopulmonary process.
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
[2018-08-21] MEDS ORDERED: fentaNYL (PF) 50 MCG/ML 2 ML AMP IVP STA (00:05)
[2018-08-21 00:23] LABS: Creatine Kinase MB <0.2 ng/mL (0.0-2.4); Troponin I <0.012 ng/mL (0.000-0.034)
[2018-08-21] MEDS ORDERED: NITROGLYCERIN SL TABS 0.4 MG TAB SUBLINGUAL STA (00:37)
[2018-08-21] MEDS ORDERED: ASPIRIN 81 MG PO STA (00:39)
--- NOTE | 2018-08-21 00:55 | CT ---
EXAM: CT Angiography Chest Without And With Intravenous Contrast CLINICAL HISTORY: Chest Pain TECHNIQUE: Axial computed tomographic angiography images of the chest without and with intravenous contrast using pulmonary embolism protocol. DLP is 1257. 9 mGy-cm. This CT exam was performed using one or more of the following dose reduction techniques: automated exposure control, adjustment of the mA and/or kV according to patient size, and/or use of iterative reconstruction technique. 3D reconstructed images were created and reviewed. COMPARISON: 06/28/2016 FINDINGS: Pulmonary arteries: Unremarkable. No pulmonary embolism. Aorta: No acute findings. No thoracic aortic aneurysm. Lungs: Unremarkable. No mass. No consolidation. Pleural space: Unremarkable. No significant effusion. No pneumothorax. Heart: Trace pericardial effusion versus thickening. Bones/joints: No acute fracture. Soft tissues: Unremarkable. Lymph nodes: Unremarkable. No enlarged lymph nodes. IMPRESSION: No acute findings. EXAM: CT Angiography Abdomen With Intravenous Contrast CLINICAL HISTORY: Chest, epigastric Pain TECHNIQUE: Axial computed tomographic angiography images of the abdomen with intravenous contrast. DLP is 1257.9 mGy-cm. This CT exam was performed using one or more of the following dose reduction techniques: automated exposure control, adjustment of the mA and/or kV according to patient size, and/or use of iterative reconstruction technique. 3D reconstructed images were created and reviewed. COMPARISON: 06/28/2016. FINDINGS: Aorta: No acute findings. No abdominal aortic aneurysm. No dissection. Celiac trunk and mesenteric arteries: No acute findings. No occlusion or significant stenosis. Renal arteries: No acute findings. No occlusion or significant stenosis. Lung bases: Unremarkable. No mass. No consolidation. Liver: Unremarkable. No mass. Gallbladder and bile ducts: Gallbladder is surgically absent. No ductal dilation. Pancreas: Unremarkable. No ductal dilation. Spleen: Unremarkable. Adrenals: Unremarkable. Kidneys and ureters: Fluid attenuating lesion in the lower pole of the right kidney, likely a cyst. Kidneys are otherwise unremarkable. No hydronephrosis. Stomach and bowel: Unremarkable. No obstruction. Intraperitoneal space: Unremarkable. No significant fluid collection. No free air. Bones/joints: No acute fracture. Soft tissues: Unremarkable. No mass. Lymph nodes: Unremarkable. No enlarged lymph nodes. IMPRESSION: No acute findings.
[2018-08-21] MEDS ORDERED: NITROGLYCERIN SL TABS 0.4 MG TAB SUBLINGUAL PRN (01:11)
[2018-08-21] MEDS: HYDROmorphone 1 MG/ML 1 ML SYRINGE IVP PRN ×3 (01:54→11:19)
[2018-08-21 02:02] VITALS: BMI 30.1
[2018-08-21 06:42] LABS: Glucose,Whole Blood 209 mg/dL (75-99)
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
[2018-08-21] MEDS ORDERED: ONDANSETRON 4 MG/2 ML VIAL IVP PRN (08:47)
[2018-08-21 11:54] LABS: Glucose,Whole Blood 215 mg/dL (75-99)
[2018-08-21] MEDS: INSULN ASP PRT/INSULIN ASPART 100 UNIT/ML 10 ML VIAL SQ SCH (12:00)
[2018-08-21] MEDS: LACTATED RINGERS 1,000 ML IV SCH ×2 (12:02→22:28)
[2018-08-21] MEDS: INSULIN ASPART (NovoLOG) 100 UNIT/ML VIAL SQ SCH ×3 (12:20→21:52)
[2018-08-21 16:54] LABS: Glucose,Whole Blood 177 mg/dL (75-99)
--- NOTE | 2018-08-21 18:30 | ECHOF ---
Referral Reason:cp MEASUREMENTS -------- HEIGHT: 152.4 cm WEIGHT: 95.3 kg BP: RVIDd: 2.8 cm (< 3.3) IVSd: 1.5 cm (0.6 - 1.1) LVIDd: 4.4 cm (3.9 - 5.3) LVPWd: 1.5 cm (0.6 - 1.1) IVSs: 1.6 cm LVIDs: 3.4 cm LVPWs: 1.4 cm LAESV Index (A-L): 25.55 ml/m Ao Diam: 3.4 cm (2.0 - 3.7) AV Cusp: 2.0 cm (1.5 - 2.6) LA Diam: 4.0 cm (2.7 - 3.8) MV EXCURSION: 21.518 mm (> 18.000) MV EF SLOPE: 108 mm/s (70 - 150) EPSS: 0.5 cm MV E Mike: 0.38 m/s MV DecT: 230 ms MV A Mike: 0.59 m/s MV E/A Ratio: 0.64 RAP: 5.00 mmHg RVSP: 13.59 mmHg FINDINGS -------- Sinus rhythm. This was a technically adequate study. The left ventricular size is normal. There is moderate concentric left ventricular hypertrophy. O verall left ventricular systolic function is low-normal with, an EF between 50 - 55 %. The right ventricle is normal in size. The left atrial size is normal. Normal LA size by volume 22+/-6 ml/m2. The right atrial size is normal. There is mild aortic valve sclerosis. There is no evidence of aortic regurgitation. Mild mitral annular calcification present. Mild mitral regurgitation is present. Mild tricuspid regurgitation present. There is no evidence of pulmonary hypertension. The right v entricular systolic pressure, as measured by Doppler, is 13.59mmHg. There is no pulmonic regurgitation present. The aortic root size is normal. There is no pericardial effusion. CONCLUSIONS -------- 1. The left ventricular size is normal. 2. There is moderate concentric left ventricular hypertrophy. 3. Overall left ventricular systolic function is low-normal with, an EF between 50 - 55 %. 4. The right ventricle is normal in size. 5. The left atrial size is normal. 6. The right atrial size is normal. 7. There is mild aortic valve sclerosis. 8. Mild mitral annular calcification present. 9. Mild mitral regurgitation is present. 10. Mild tricuspid regurgitation present. 11. There is no evidence of pulmonary hypertension. 12. The right ventricular systolic pressure, as measured by Doppler, is 13.59mmHg. 13. There is no pulmonic regurgitation present. 14. The aortic root size is normal. 15. There is no pericardial effusion. ESTHETICS INSTRUCTOR: Coby Mello RDCS
[2018-08-21] MEDS ORDERED: INSULN ASP PRT/INSULIN ASPART 100 UNIT/ML 10 ML VIAL SQ SCH (21:00)
[2018-08-21 21:16] LABS: Glucose,Whole Blood 191 mg/dL (75-99)
[2018-08-21 22:49] LABS: Cholesterol 260 mg/dL (<200); HDL Cholesterol 34 mg/dL (40-60); LDL Cholesterol,Calculated 187 mg/dL (0-99); Triglycerides 195 mg/dL (<150)
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
[2018-08-22 06:47] LABS: Glucose,Whole Blood 182 mg/dL (75-99)
[2018-08-22 07:39] VITALS: RESP 18
--- NOTE | 2018-08-22 07:53 | P.PN ---
Progress Note - Text Progress Note Date: 08/22/18 This is a 63-year-old gentleman with history of pancreatitis in the past as well as diabetes presented to the hospital complaining of epigastric discomfort. He was in his usual state of health about 2 days ago when he started experiencing discomfort in the epigastric area, described as a dull kind of discomfort, with some radiation to the lower chest. It was associated with nausea and vomiting as well as chills. He did not have any shortness of breath, sweating, heart racing or fluttering, dizziness or syncope. The EKG showed sinus rhythm without any significant ST or T-wave abnormalities concerning for ischemia. The cardiac enzymes were checked and came in to be unremarkable. The chest x-ray did not show any acute abnormalities. The computed tomography scan of the chest did not show any acute abnormalities as well. The echocardiogram revealed normal LV function without any significant valvular abnormalities and without any pericardial effusion. On follow-up with the patient today, August 222018, he is doing better and he is chest pain-free. From the cardiac vascular standpoint overview, I did recommend the patient to get up and around and if he is pain free he might be able to be discharged home.
[2018-08-22] MEDS: INSULIN ASPART (NovoLOG) 100 UNIT/ML VIAL SQ SCH ×2 (08:20→11:36)
[2018-08-22] MEDS: INSULN ASP PRT/INSULIN ASPART 100 UNIT/ML 10 ML VIAL SQ SCH (08:24)
[2018-08-22] MEDS ORDERED: ASPIRIN 325 MG TAB PO SCH (09:00)
[2018-08-22 11:35] LABS: Glucose,Whole Blood 135 mg/dL (75-99)
[2018-08-22 12:28] VITALS: BP 147/93; PULSE 63; TEMP 98.2
--- NOTE | 2018-08-25 08:40 | DS ---
DISCHARGE SUMMARY DATE OF ADMISSION: August 21, 2018 DATE OF DISCHARGE: August 22, 2018. FINAL DIAGNOSES: 1. Acute chronic relapsing pancreatitis. Diagnosed clinically. 2. Chronic obstructive pulmonary disease in an ex-smoker. 3. Diabetes mellitus type 2, chronically on insulin. 4. Gastroesophageal reflux disease. 5. Diabetes mellitus type 2 causing peripheral neuropathy. 6. Benign prostatic hypertrophy. 7. Major depressive disorder. 8. 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 9. Hypertensive heart disease. 10.Referred pain to the chest from the abdomen. HOSPITAL COURSE: This patient presented with increasing abdominal pain, felt to be chronic pancreatitis. No fever, no white count. The patient initially was made n.p.o. then did clear liquids and advancing the diet, tolerated quite well. Patient was seen by Cardiology, Dr. Adorno. 2D echocardiogram showed EF of 50-55%. No wall motion abnormality. The patient LDL came back at 187. The patient is to follow up with his family doctor regarding his hypercholesteremia. PHYSICAL EXAMINATION: VITAL SIGNS: Temperature 98.2. Pulse 63, respiratory 18, blood pressure 147/93. Pulse ox 95% on room air. ABDOMEN: Soft, nontender. CARDIOVASCULAR: 1st and 2nd sounds normal. CONSULTATION: Dr. Adorno from Cardiology. DISCHARGE MEDICATIONS: 1. Novolin 70/30, 15 units at night, 30 units in the morning. 2. Aspirin 81 mg daily. 3. Pepcid 20 mg p.o. b.i.d. FOLLOW UP: Dr. Adorno on September 09, 2018. Follow up with Dr. Victorino Robert in one week. Follow up with Dr. Morro Menchaca in 3 days. Carbohydrate conservative diet. Copy to Dr. Morro Menchaca. MMODL / IJN: [id number] /
== END 2018-08-22 17:00 | disposition home or self-care (01) ==
LOC: EC 22:58 → 1SOBS 08-21 01:11
PROVIDERS: ADMIT Hospitalist; ATTEND Hospitalist
DX: K85.90 Acute pancreatitis without necrosis or infection, unspecified (principal); K86.1 Other chronic pancreatitis; J44.9 Chronic obstructive pulmonary disease, unspecified; Z79.4 Long term (current) use of insulin; K21.9 Gastro-esophageal reflux disease without esophagitis; E11.42 Type 2 diabetes mellitus with diabetic polyneuropathy; N40.0 Benign prostatic hyperplasia without lower urinary tract symptoms; I11.9 Hypertensive heart disease without heart failure; Z87.891 Personal history of nicotine dependence; H54.61 Unqualified visual loss, right eye, normal vision left eye; E78.00 Pure hypercholesterolemia, unspecified; I25.2 Old myocardial infarction; F41.9 Anxiety disorder, unspecified; F31.9 Bipolar disorder, unspecified; Z88.8 Allergy status to other drugs, medicaments and biological substances; Z88.0 Allergy status to penicillin; I25.10 Atherosclerotic heart disease of native coronary artery without angina pectoris; Z87.19 Personal history of other diseases of the digestive system; Z87.01 Personal history of pneumonia (recurrent); Z87.440 Personal history of urinary (tract) infections; Z87.820 Personal history of traumatic brain injury; Z87.11 Personal history of peptic ulcer disease; Z90.49 Acquired absence of other specified parts of digestive tract; Z81.1 Family history of alcohol abuse and dependence
CPT/HCPCS: 96376; 96361 ×2; 96374; 96375 ×2; 99285; 36415; 93005; 93306; 80061; 80053; 82150; 82553; 83690; 83735; 84484 ×2; 85025; 71046; 71275; 74174; G0378 ×2; J2405 ×2; J3010; J1170 ×2; Q9967

== ENCOUNTER 2018-10-20 07:33 | Observation (INO) | payer OTHER ==
[2018-10-20] MEDS ORDERED: SODIUM CHLORIDE 0.9% 500 ML 500 ML IV STA (07:53)
[2018-10-20] MEDS ORDERED: ONDANSETRON 4 MG/2 ML VIAL IVP STA (07:54)
[2018-10-20] MEDS ORDERED: HYDROmorphone 1 MG/ML 1 ML SYRINGE IVP STA ×2 (07:55→10:27)
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
[2018-10-20 08:35] LABS: ALT 17 U/L (21-72); AST 17 U/L (17-59); Alkaline Phosphatase 87 U/L (38-126); Anion Gap 9 mmol/L; Blood Urea Nitrogen 19 mg/dL (9-20); C Reactive Protein <5.0 mg/L (<10.0); Calcium 9.9 mg/dL (8.4-10.2); Carbon Dioxide 25 mmol/L (22-30); Chloride 107 mmol/L (98-107); Glucose 172 mg/dL (74-99); Sodium 141 mmol/L (137-145); Total Bilirubin 0.5 mg/dL (0.2-1.3); Total Protein 6.9 g/dL (6.3-8.2)
[2018-10-20 08:44] LABS: Basophils # (A) 0.1 k/uL (0-0.2); Basophils % (A) 1 %; Eosinophils # (A) 0.1 k/uL (0-0.7); Eosinophils % (A) 1 %; HCT 49.5 % (39.0-53.0); HGB 16.7 gm/dL (13.0-17.5); Lymphocytes # (A) 2.4 k/uL (1.0-4.8); Lymphocytes % (A) 46 %; MCH 30.1 pg (25.0-35.0); MCHC 33.7 g/dL (31.0-37.0); MCV 89.4 fL (80.0-100.0); Mean Platelet Volume 6.9; Monocytes # (A) 0.5 k/uL (0-1.0); Monocytes % (A) 9 %; Neutrophils % (A) 38 %; Platelet Count 237 k/uL (150-450); RBC 5.53 m/uL (4.30-5.90); RDW 14.1 % (11.5-15.5); WBC 5.2 k/uL (3.8-10.6)
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
[2018-10-20] MEDS ORDERED: KETOROLAC 60 MG/2 ML VIAL IVP STA (08:55)
[2018-10-20 08:59] LABS: INR 0.9 (<1.2); Partial Thromboplastin Time 22.4 sec (22.0-30.0); Prothrombin Time 10.2 sec (9.0-12.0)
[2018-10-20 10:03] LABS: Erythrocyte Sedimentation Rate 8 mm/hr (0-15)
[2018-10-20] MEDS ORDERED: SODIUM CHLORIDE 0.9% 1,000 ML IV ONE (10:40)
[2018-10-20] MEDS: KETOROLAC 30 MG/ML 1 ML VIAL IVP SCH ×2 (11:44→17:35)
[2018-10-20 11:51] LABS: Glucose,Whole Blood 96 mg/dL (75-99)
[2018-10-20 11:52] VITALS: BMI 31.3
[2018-10-20] MEDS: ASPIRIN 81 MG PO SCH (12:41)
[2018-10-20] MEDS: FAMOTIDINE 20 MG TAB PO SCH ×2 (12:41→21:37)
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
[2018-10-20] MEDS: GABAPENTIN 300 MG CAP PO SCH ×2 (14:50→21:37)
[2018-10-20] MEDS ORDERED: INSULN ASP PRT/INSULIN ASPART 100 UNIT/ML 10 ML VIAL SQ SCH (21:00)
[2018-10-20 21:35] LABS: Glucose,Whole Blood 154 mg/dL (75-99)
[2018-10-20] MEDS ORDERED: ENOXAPARIN 40 MG/0.4 ML SYRINGE SQ SCH (22:30)
[2018-10-20] MEDS: methylPREDNISolone SOD SUCCI 125 MG/2 ML VIAL IV SCH (22:39)
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
[2018-10-20] MEDS: NAPROXEN 250 MG TAB PO SCH (23:42)
[2018-10-21] MEDS: methylPREDNISolone SOD SUCCI 125 MG/2 ML VIAL IV SCH (05:53)
[2018-10-21 07:21] LABS: Glucose,Whole Blood 239 mg/dL (75-99)
[2018-10-21] MEDS ORDERED: INSULN ASP PRT/INSULIN ASPART 100 UNIT/ML 10 ML VIAL SQ SCH (07:30)
[2018-10-21 08:12] VITALS: BP 143/91; PULSE 85; RESP 15; TEMP 98.2
[2018-10-21] MEDS: FAMOTIDINE 20 MG TAB PO SCH (08:25)
[2018-10-21] MEDS: GABAPENTIN 300 MG CAP PO SCH (08:25)
[2018-10-21] MEDS: ASPIRIN 81 MG PO SCH (08:25)
[2018-10-21] MEDS: NAPROXEN 250 MG TAB PO SCH (08:26)
[2018-10-21] MEDS ORDERED: predniSONE 20 MG TAB PO SCH (09:00)
[2018-10-21 12:08] LABS: Glucose,Whole Blood 198 mg/dL (75-99)
--- NOTE | 2018-10-21 12:43 | P.PN ---
Subjective Progress Note Date: 10/21/18 Patient states the headache is gone. Denies any new neurological symptoms. Objective - Vital Signs Vital signs: Vital Signs Temp 98.2 F 10/21/18 07:00 Pulse 85 10/21/18 07:00 Resp 15 10/21/18 07:00 BP 143/91 10/21/18 07:00 Pulse Ox 93 L 10/21/18 07:00 Intake & Output 10/20/18 10/21/18 10/21/18 18:59 06:59 18:59 Intake Total 480 480 480 Balance 480 480 480 Weight 99.79 kg Intake: Oral 480 480 480 Other: # Voids 2 - Exam Normal. - Labs CBC & Chem 7: 10/20/18 08:05 10/20/18 08:05 Labs: Abnormal Lab Results - Last 24 Hours (Table) 10/20/18 10/21/18 10/21/18 Range/Units 21:23 07:09 11:57 POC Glucose (mg/dL) 154 H 239 H 198 H (75-99) mg/dL Assessment and Plan Assessment: 63-year-old male presented with: * Acute right parietal cephalgia/atypical facial pain noticed on waking up last night. The pain almost appears like neuropathic hyperesthetic pain, extending to the right frontal region, with pressure in the right occipital and right facial region. The exact cause is uncertain. Differential is between occ ipital neuralgia (related to entrapment versus inflammation versus diabetic related), inflammation related to the underlying plate from previous craniectomy. Temporal arteritis very unlikely with normal ESR. Plan: Headache has resolved. Patient has received Solu-Medrol 60 mg IV yesterday and prednisone 40 mg today. Also on gabapentin. We will DC gabapentin to see if the headache reappears, then gabapentin can be resumed. Currently patient on prednisone. Hemoglobin A1c is still pending. The last A1c was 7.2 on 02/23/2016. Possible discharge home today.
[2018-10-21 14:41] LABS: Hemoglobin A1C 9.6 % (4.0-6.0)
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
== END 2018-10-21 12:43 | disposition home or self-care (01) ==
LOC: EC 07:33 → 3NMEDONC 10:42 → 4SSUR 11:02
PROVIDERS: ADMIT Hospitalist; ATTEND Hospitalist
DX: E11.42 Type 2 diabetes mellitus with diabetic polyneuropathy (principal); K86.1 Other chronic pancreatitis; J44.9 Chronic obstructive pulmonary disease, unspecified; H54.61 Unqualified visual loss, right eye, normal vision left eye; I25.10 Atherosclerotic heart disease of native coronary artery without angina pectoris; K21.9 Gastro-esophageal reflux disease without esophagitis; G40.909 Epilepsy, unspecified, not intractable, without status epilepticus; R41.3 Other amnesia; I11.9 Hypertensive heart disease without heart failure; G89.29 Other chronic pain; M54.5 Low back pain; N40.0 Benign prostatic hyperplasia without lower urinary tract symptoms; F41.9 Anxiety disorder, unspecified; F31.9 Bipolar disorder, unspecified; R51 Headache; I25.2 Old myocardial infarction; Z79.82 Long term (current) use of aspirin; Z79.4 Long term (current) use of insulin; Z88.0 Allergy status to penicillin; Z88.8 Allergy status to other drugs, medicaments and biological substances; Z87.891 Personal history of nicotine dependence; Z87.828 Personal history of other (healed) physical injury and trauma; Z87.19 Personal history of other diseases of the digestive system; Z87.01 Personal history of pneumonia (recurrent); Z87.440 Personal history of urinary (tract) infections; Z87.11 Personal history of peptic ulcer disease; Z86.010 Personal history of colon polyps; Z86.19 Personal history of other infectious and parasitic diseases; Z90.49 Acquired absence of other specified parts of digestive tract; Z81.1 Family history of alcohol abuse and dependence
CPT/HCPCS: 96376 ×3; 96372; 96375 ×2; 96374; 99285; 36415; 93005; 80053; 85652; 84484; 85025; 85610; 85730; 86140; 83036; 70450; G0378 ×2; J2930 ×2; J2405; J1650; J1885 ×2; J1170; J7512

== ENCOUNTER → 2018-10-30 | Outpatient (CLI) | payer OTHER ==
[2018-10-30 18:05] LABS: Anion Gap 10.9 mmol/L (4.00-12.00); Calcium 9.4 mg/dL (8.7-10.3); Carbon Dioxide 23.1 mmol/L (21.6-31.8); Potassium 4.3 mmol/L (3.5-5.5)
== END | disposition home or self-care (01) ==
LOC: LABWHC1 09:38
PROVIDERS: ATTEND Internal Medicine
DX: R51 Headache (principal); M54.12 Radiculopathy, cervical region
CPT/HCPCS: 36415; 80048

== ENCOUNTER → 2018-11-04 | Outpatient (CLI) | payer OTHER ==
--- NOTE | 2018-11-04 15:59 | CT ---
EXAMINATION TYPE: CT cervical spine wo con DATE OF EXAM: 11/04/2018 COMPARISON: None HISTORY: Pt c/o neck pain going up to head CT DLP: 596.7 mGycm CONTRAST: None CT of the cervical spine is performed in the axial plane at 2 mm thick sections. Reconstructed image s in the coronal, and sagittal plane are reviewed on the computer. No acute fractures are evident. Vertebral body alignment is normal. There is loss of disc height throughout the cervical spine appears greatest C4-5. Vertebral body heights are preserved. No spinal canal stenosis is evident Uncovertebral joint hypertrophy has moderate bilateral foraminal narrowing C3-4. Uncovertebral joint hypertrophy is contributing to severe foraminal stenosis C4-5 bilaterally, C5-6 on the left and moder ate on the right and at least moderate bilaterally C6-7. Limited CT sections are obtained the upper lung apices which are clear. IMPRESSIONS: 1. Normal CT cervical spine.
== END | disposition home or self-care (01) ==
LOC: RADCTMAIN 06:47
PROVIDERS: ATTEND Internal Medicine
DX: G54.2 Cervical root disorders, not elsewhere classified (principal); R51 Headache
CPT/HCPCS: 72125

== ENCOUNTER 2018-11-08 07:58 | Day surgery (SDC) | payer OTHER ==
[2018-11-06 18:11] VITALS: BMI 31.5
[~2018-11-08 07:58] MED LIST: LACTATED RINGERS 1,000 ML IV SCH
[2018-11-08 08:13] VITALS: TEMP 98.1
[2018-11-08] MEDS ORDERED: LIDOCAINE 1% 20 ML VIAL (10MG/ML) FOR IV START INTRADERMA ONE (08:13)
[2018-11-08] MEDS ORDERED: PROPOFOL 10 MG/ML 20 ML VIAL IV ONE (08:34)
[2018-11-08] MEDS ORDERED: LIDOCAINE 1% INJ 10MG/ML (20 ML MDV) ONE (08:34)
[2018-11-08 08:36] LABS: Glucose,Whole Blood 218 mg/dL (75-99)
--- NOTE | 2018-11-08 08:58 | P.PCN ---
Date of Procedure: 11/08/18 Procedure(s) Performed: Brief history: Patient is a pleasant 63-year-old white male, scheduled for an elective upper endoscopy as well as colonoscopy as a part of evaluation of abdominal pain, severe heartburn, alternating diarrhea and constipation for the last 6 months duration. Procedure performed: Esophagogastroduodenoscopy with biopsy Colonoscopy Preoperative diagnosis: GERD/abdominal pain Altered bowel movements Anesthesia: MAC Procedure: After informed consent was obtained from the patient was brought into the endoscopy unit and IV sedation was administered by anesthesia under continuous monitoring. Initially upper endoscopy was done. The Olympus GF 160 video endoscope was inserted inserted into the mouth and esophagus intubated without any difficulty and was gradually advanced into the stomach and duodenum and carefully examined. The bulb and second part of the duodenum appeared normal. Biopsies were done from the duodenum to rule out celiac disease. The scope was then withdrawn into the stomach adequately insufflated with air and upon careful examination the antrum had diffuse gastritis and biopsies were done from this area. The body, cardia and fundus appeared normal. The scope was then withdrawn into the esophagus. The GE junction was located at 40 cm to the inc isors. It appeared regbut there were 2 superficial erosions consistent with LA grade B reflux esophagitis.Rest of the esophagus appeared normal. Patient tolerated the procedure well. At this time the patient continued to remain sedation. Initial digital rectal examination was normal. Olympus CF 160 video colonoscope was then inserted into the rectum and gradually advanced to the cecum without any difficulty. Careful examination was performed as the scope was gradually being withdrawn. The prep was excellent. The cecum, ascending colon, transverse colon, descending colon, sigmoid colon and rectum appeared normal. Retroflexion was performed in the rectum and no lesions were noted. Patient tolerated the procedure well. Impression: 1. Upper endoscopy revealed diffuse antral gastritis and superficial erosions at the GE junction consistent with LA grade B reflux esophagitis 2. Colonoscopy was within normal limits with no evidence of colitis or colorectal neoplasia. Recommendations: Findings of this examination were discussed with the patient as well as his family. He was advised to follow with the biopsy results. He will continue Pepcid 40 mg daily and follow anti-reflux measures. He can have a repeat screening colonoscopy in 10 years,
[2018-11-08 09:20] VITALS: BP 128/78; PULSE 68; RESP 18
== END 2018-11-08 09:49 | disposition home or self-care (01) ==
LOC: ORWHC2ENDO 07:58
PROVIDERS: ATTEND Internal Medicine Gastroenterology
DX: K29.50 Unspecified chronic gastritis without bleeding (principal); B96.81 Helicobacter pylori [H. pylori] as the cause of diseases classified elsewhere; K29.80 Duodenitis without bleeding; K21.0 Gastro-esophageal reflux disease with esophagitis; I25.10 Atherosclerotic heart disease of native coronary artery without angina pectoris; E11.9 Type 2 diabetes mellitus without complications; I25.2 Old myocardial infarction; Z79.4 Long term (current) use of insulin; Z79.899 Other long term (current) drug therapy; Z79.82 Long term (current) use of aspirin; Z87.891 Personal history of nicotine dependence
CPT/HCPCS: 88305; 45378; 43239; J2001; J2704

== ENCOUNTER 2020-05-26 07:34 | Emergency (ER) | payer OTHER ==
[2020-05-26 07:41] VITALS: RESP 18; TEMP 98.4
[2020-05-26] MEDS ORDERED: KETOROLAC 15 MG/ML 1 ML VIAL IVP STA (08:02)
[2020-05-26] MEDS ORDERED: SODIUM CHLORIDE 0.9% 1,000 ML IV STA ×2 (08:02)
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
[2020-05-26 08:41] LABS: Basophils % (A) 1 %; Eosinophils # (A) 0.1 k/uL (0-0.7); Eosinophils % (A) 2 %; HCT 44.9 % (39.0-53.0); HGB 15.2 gm/dL (13.0-17.5); Lymphocytes % (A) 24 %; MCH 29.9 pg (25.0-35.0); MCV 88.2 fL (80.0-100.0); Mean Platelet Volume 6.9; Monocytes # (A) 0.7 k/uL (0-1.0); Monocytes % (A) 9 %; Neutrophils # (A) 5.3 k/uL (1.3-7.7); Neutrophils % (A) 62 %; Platelet Count 330 k/uL (150-450); RBC 5.09 m/uL (4.30-5.90); RDW 12.9 % (11.5-15.5); WBC 8.5 k/uL (3.8-10.6)
[2020-05-26] MEDS ORDERED: cefTRIAXone IN SWFI 1,000 MG/10 ML SYRINGE IVP STA (08:49)
--- NOTE | 2020-05-26 08:49 | XR ---
EXAMINATION TYPE: XR KUB portable DATE OF EXAM: 05/26/2020 8:37 AM CLINICAL HISTORY: Left flank pain TECHNIQUE: Single supine KUB image of the abdomen is obtained. COMPARISON: None. FINDINGS: Scattered gas is seen in non-distended small bowel loops. Gas and fecal material is seen in non-distended colon. There is postsurgical change in the right upper quadrant. Hypertrophic and dege nerative change the spine. No suspicious calcifications. IMPRESSION: 1. Nonspecific abdomen
[2020-05-26 08:53] LABS: Albumin 4.1 g/dL (3.5-5.0); Calcium 9.5 mg/dL (8.4-10.2); Potassium 4.4 mmol/L (3.5-5.1); Total Bilirubin 0.5 mg/dL (0.2-1.3); Total Protein 7.2 g/dL (6.3-8.2)
[2020-05-26 08:59] LABS: Appearance,Urine Turbid (Clear); Bilirubin,Urine Negative (Negative); Blood,Urine Large (Negative); Color,Urine Yellow; Glucose,Urine (UA) 4+ (Negative); Ketones,Urine Negative (Negative); Leukocyte Esterase,Urine Large (Negative); Nitrite,Urine Positive (Negative); Protein,Urine 3+ (Negative); Specific Gravity,Urine 1.018 (1.001-1.035); Urobilinogen,Urine <2.0 mg/dL (<2.0); WBC,Urine >182 /hpf (0-5)
[2020-05-26 09:00] LABS: Bacteria,Urine Few /hpf; Mucus,Urine Few /hpf; RBC,Urine >182 /hpf (0-5); Squamous Epithelial Cell,Urine 2 /hpf (0-4)
[2020-05-26] MEDS ORDERED: SODIUM CHLORIDE 0.9% 500 ML 500 ML IV STA (09:30)
[2020-05-26 10:34] VITALS: BP 148/89; PULSE 78
== END 2020-05-26 10:35 | disposition home or self-care (01) ==
LOC: EC 07:34
DX: N39.0 Urinary tract infection, site not specified (principal); E86.0 Dehydration; J44.9 Chronic obstructive pulmonary disease, unspecified; K21.9 Gastro-esophageal reflux disease without esophagitis; I25.2 Old myocardial infarction; G40.909 Epilepsy, unspecified, not intractable, without status epilepticus; E11.40 Type 2 diabetes mellitus with diabetic neuropathy, unspecified; F41.9 Anxiety disorder, unspecified; F31.9 Bipolar disorder, unspecified; Z79.4 Long term (current) use of insulin; Z79.899 Other long term (current) drug therapy; Z88.0 Allergy status to penicillin; Z88.8 Allergy status to other drugs, medicaments and biological substances; Z87.891 Personal history of nicotine dependence
CPT/HCPCS: 36415; 80053; 82550; 85025; 81001; 87040; 87086; 74018; 99283; 96374; 96375; 96361 ×2; J0696; J1885

== ENCOUNTER 2020-06-08 09:06 | Emergency (ER) | payer OTHER ==
[2020-06-08 09:12] VITALS: RESP 18; TEMP 97.8
[2020-06-08] MEDS ORDERED: MORPHINE SULFATE 4 MG/ML SYRINGE IVP STA ×2 (09:33→11:00)
[2020-06-08] MEDS ORDERED: SODIUM CHLORIDE 0.9% 1,000 ML IV ONE (09:33)
[2020-06-08 09:35] LABS: Appearance,Urine Clear (Clear); Bilirubin,Urine Negative (Negative); Blood,Urine Negative (Negative); Color,Urine Yellow; Glucose,Urine (UA) 2+ (Negative); Ketones,Urine Negative (Negative); Leukocyte Esterase,Urine Trace (Negative); Mucus,Urine Rare /hpf; Nitrite,Urine Negative (Negative); Protein,Urine Negative (Negative); RBC,Urine <1 /hpf (0-5); Specific Gravity,Urine 1.016 (1.001-1.035); Squamous Epithelial Cell,Urine <1 /hpf (0-4); Urobilinogen,Urine <2.0 mg/dL (<2.0); WBC,Urine 2 /hpf (0-5)
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
[2020-06-08 10:11] LABS: ALT 15 U/L (4-49); African American GFR (CKD) >90 (>60 ml/min/1.73 sqM); Albumin 4.4 g/dL (3.5-5.0); Anion Gap 9 mmol/L; Blood Urea Nitrogen 32 mg/dL (9-20); Calcium 9.5 mg/dL (8.4-10.2); Carbon Dioxide 22 mmol/L (22-30); Chloride 102 mmol/L (98-107); Glucose 230 mg/dL (74-99); Non-African American GFR(CKD) 82 (>60 ml/min/1.73 sqM); Sodium 133 mmol/L (137-145); Total Bilirubin 0.8 mg/dL (0.2-1.3); Total Protein 7.8 g/dL (6.3-8.2)
[2020-06-08 10:13] LABS: Basophils # (A) 0.1 k/uL (0-0.2); Basophils % (A) 1 %; Eosinophils # (A) 0.1 k/uL (0-0.7); Eosinophils % (A) 1 %; HCT 45.3 % (39.0-53.0); HGB 15.9 gm/dL (13.0-17.5); Lymphocytes # (A) 2.6 k/uL (1.0-4.8); Lymphocytes % (A) 40 %; MCH 30.8 pg (25.0-35.0); MCV 88.2 fL (80.0-100.0); Mean Platelet Volume 6.9; Monocytes # (A) 0.5 k/uL (0-1.0); Monocytes % (A) 7 %; Neutrophils # (A) 3.1 k/uL (1.3-7.7); Neutrophils % (A) 49 %; Platelet Count 371 k/uL (150-450); RBC 5.14 m/uL (4.30-5.90); RDW 12.8 % (11.5-15.5); WBC 6.4 k/uL (3.8-10.6)
[2020-06-08 10:15] LABS: Partial Thromboplastin Time 22.4 sec (22.0-30.0); Prothrombin Time 10.2 sec (9.0-12.0)
[2020-06-08 10:18] LABS: AST 32 U/L (17-59); Alkaline Phosphatase 84 U/L (38-126); Magnesium 1.7 mg/dL (1.6-2.3); Potassium 4.5 mmol/L (3.5-5.1)
--- NOTE | 2020-06-08 10:30 | XR ---
EXAMINATION TYPE: XR KUB DATE OF EXAM: 06/08/2020 COMPARISON: NONE HISTORY: Pain TECHNIQUE: Single supine KUB image of the abdomen is obtained FINDINGS: Small bowel demonstrates no evidence for dilatation or air fluid levels. Gas and fecal material is seen in non-distended colon. No convincing evidence for pneumoperitoneum. No unusual calcifications. The lung bases are clear. The osseous structures are intact. IMPRESSION: 1. Overall nonobstructive bowel gas pattern.
[2020-06-08] MEDS ORDERED: KETOROLAC 15 MG/ML 1 ML VIAL IVP STA (10:38)
[2020-06-08] MEDS ORDERED: KETOROLAC 15 MG/ML 1 ML VIAL ONE (10:39)
--- NOTE | 2020-06-08 10:49 | CT ---
EXAMINATION TYPE: CT abdomen pelvis w con DATE OF EXAM: 06/08/2020 COMPARISON: 02/17/2016 HISTORY: LLQ pain CT DLP: 1333.7 mGycm CONTRAST: CT scan of the abdomen and pelvis is performed without Oral Contrast and with IV Contrast, patient in jected with 100 mL of Isovue 300. FINDINGS: LUNG BASES-: No visible nodule. No infiltrate. LIVER/GB: The gallbladder is surgically absent. No space occupying hepatic lesion. Biliary tree is of normal caliber. PANCREAS: No inflammation. No distinct mass. SPLEEN: No splenic enlargement. No lesion seen. ADRENALS: No nodule. No thickening. KIDNEYS/BLADDER: No hydronephrosis. No nephrolithiasis. 3.2 cm simple cyst right kidney. Urinary bl adder grossly unremarkable. BOWEL: Normal appendix. Mild small bowel distention may reflect enteritis. Large bowel is of normal caliber. No evidence for diverticulitis or appendicitis. GENITAL ORGANS: No gross abnormality. LYMPH NODES: No greater than 1cm abdominal or pelvic lymph nodes are appreciated. AORTA: No significant abnormality. OSSEOUS STRUCTURES: No significant abnormality is seen. OTHER: No significant additional abnormality is seen. IMPRESSION: 1. Mild small bowel distention may reflect enteritis.
[2020-06-08 11:05] VITALS: BP 117/76; PULSE 78
== END 2020-06-08 11:38 ==
LOC: EC 09:06
DX: N45.1 Epididymitis (principal); K52.9 Noninfective gastroenteritis and colitis, unspecified; R82.998 Other abnormal findings in urine; I25.119 Atherosclerotic heart disease of native coronary artery with unspecified angina pectoris; J44.9 Chronic obstructive pulmonary disease, unspecified; E11.9 Type 2 diabetes mellitus without complications; K21.9 Gastro-esophageal reflux disease without esophagitis; I25.2 Old myocardial infarction; G40.909 Epilepsy, unspecified, not intractable, without status epilepticus; Z79.4 Long term (current) use of insulin; Z79.51 Long term (current) use of inhaled steroids; Z79.899 Other long term (current) drug therapy; Z88.0 Allergy status to penicillin; Z88.8 Allergy status to other drugs, medicaments and biological substances; Z95.5 Presence of coronary angioplasty implant and graft; Z90.49 Acquired absence of other specified parts of digestive tract; Z87.19 Personal history of other diseases of the digestive system; Z87.891 Personal history of nicotine dependence
CPT/HCPCS: 36415; 80053; 83605; 83735; 85025; 85610; 85730; 81001; 87040; 74018; 74177; 99285; 96374; 96375; 96376; 96361 ×2; J2270; J1885; Q9967

== ENCOUNTER 2020-09-03 16:51 | Emergency (ER) | payer MEDICARE, OTHER ==
[2020-09-03 16:57] VITALS: TEMP 98
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
[2020-09-03 17:40] LABS: Basophils % (A) 1 %; Eosinophils # (A) 0.1 k/uL (0-0.7); Eosinophils % (A) 1 %; HCT 46.1 % (39.0-53.0); HGB 16.2 gm/dL (13.0-17.5); Lymphocytes # (A) 2.7 k/uL (1.0-4.8); Lymphocytes % (A) 32 %; MCH 30.4 pg (25.0-35.0); MCHC 35.1 g/dL (31.0-37.0); MCV 86.8 fL (80.0-100.0); Mean Platelet Volume 7.1; Monocytes # (A) 0.6 k/uL (0-1.0); Monocytes % (A) 7 %; Neutrophils # (A) 4.9 k/uL (1.3-7.7); Neutrophils % (A) 58 %; Platelet Count 312 k/uL (150-450); RBC 5.32 m/uL (4.30-5.90); RDW 13.2 % (11.5-15.5); WBC 8.6 k/uL (3.8-10.6)
--- NOTE | 2020-09-03 17:56 | XR ---
EXAMINATION TYPE: XR chest 2V DATE OF EXAM: 09/03/2020 COMPARISON: 08/20/2018 HISTORY: Difficulty breathing TECHNIQUE: FINDINGS: There is no heart failure nor confluent pneumonic infiltrate. Costophrenic angles are clear . There are no hilar masses. There are chest leads. Bony thorax is intact. IMPRESSION: No active cardiopulmonary disease. Normal heart.
[2020-09-03 17:58] LABS: Albumin 4.3 g/dL (3.5-5.0); Potassium 4.4 mmol/L (3.5-5.1); Total Bilirubin 0.5 mg/dL (0.2-1.3); Total Protein 7.3 g/dL (6.3-8.2)
[2020-09-03 18:07] LABS: D-Dimer 0.25 mg/L FEU (<0.60); Prothrombin Time 10.5 sec (9.0-12.0)
[2020-09-03 18:08] LABS: Partial Thromboplastin Time 20.8 sec (22.0-30.0)
[2020-09-03 19:22] VITALS: PULSE 91
[2020-09-03 19:56] VITALS: BP 133/90; RESP 18
== END 2020-09-03 19:56 | disposition home or self-care (01) ==
LOC: EC 16:51
DX: R06.00 Dyspnea, unspecified (principal); I25.10 Atherosclerotic heart disease of native coronary artery without angina pectoris; J44.9 Chronic obstructive pulmonary disease, unspecified; E11.9 Type 2 diabetes mellitus without complications; I25.2 Old myocardial infarction; G40.909 Epilepsy, unspecified, not intractable, without status epilepticus; K21.9 Gastro-esophageal reflux disease without esophagitis; Z79.4 Long term (current) use of insulin; F32.9 Major depressive disorder, single episode, unspecified; Z95.5 Presence of coronary angioplasty implant and graft; Z87.891 Personal history of nicotine dependence; Z90.49 Acquired absence of other specified parts of digestive tract
CPT/HCPCS: 36415; 71046; 80053; 83605; 83880; 84484; 85025; 85379; 85610; 85730; 87635; 93005; 99285

== ENCOUNTER 2021-12-18 14:08 | Emergency (ER) | payer MEDICARE, OTHER ==
[2021-12-18 14:50] VITALS: BP 141/78; PULSE 107; RESP 15; TEMP 98
[2021-12-18] MEDS ORDERED: KETOROLAC 15 MG/ML 1 ML VIAL IM STA (15:34)
--- NOTE | 2021-12-18 15:55 | US ---
EXAMINATION TYPE: US venous doppler duplex LE RT DATE OF EXAM: 12/18/2021 3:23 PM COMPARISON: NONE CLINICAL HISTORY: pain. Pt states right calf pain SIDE PERFORMED: Right TECHNIQUE: The lower extremity deep venous system is examined utilizing real time linear array sonog maximo with graded compression, doppler sonography and color-flow sonography. VESSELS IMAGED: Common Femoral Vein Deep Femoral Vein Greater Saphenous Vein * Femoral Vein Popliteal Vein Small Saphenous Vein * Proximal Calf Veins (* superficial vessels) Right Leg: Positive for DVT at level distal popliteal and proximal calf veins IMPRESSION: No evidence of deep vein thrombosis in the right leg.
[2021-12-18] MEDS ORDERED: APIXABAN 5 MG TAB PO STA (16:11)
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
== END 2021-12-18 16:37 | disposition home or self-care (01) ==
LOC: EC 14:08
DX: I82.431 Acute embolism and thrombosis of right popliteal vein (principal); J44.9 Chronic obstructive pulmonary disease, unspecified; E11.9 Type 2 diabetes mellitus without complications; K21.9 Gastro-esophageal reflux disease without esophagitis; I25.2 Old myocardial infarction; Z87.891 Personal history of nicotine dependence; Z88.0 Allergy status to penicillin; Z88.8 Allergy status to other drugs, medicaments and biological substances; Z79.899 Other long term (current) drug therapy; Z79.4 Long term (current) use of insulin
CPT/HCPCS: 93971; 99283; 96372; J1885

== ENCOUNTER → 2023-12-25 | Outpatient (CLI) | payer MEDICARE, OTHER ==
--- NOTE | 2023-12-25 14:24 | CT ---
EXAMINATION TYPE: CT thor lumbar spine wo con CT DLP: 1536.2 mGycm, Automated exposure control for dose reduction was used. DATE OF EXAM: 12/25/2023 12:29 PM CLINICAL INDICATION:Male, 68 years old with history of R26.81 UNSTEADY FEET M62.81 WEAKNESS; Lower ba ck pain x2 months. COMPARISON: CTA thoracic/abdominal aorta 08/21/2018, 06/28/2016. CT cervical spine 11/08/2018 TECHNIQUE: Axial images of the thoracic and lumbar spine were obtained without contrast. Coronal and sagittal reformats were performed. CT Contrast: Contrast used: none. Oral contrast used: none. FINDINGS: Thoracic: The thoracic vertebral bodies have preserved heights and alignment. Multilevel Schmorl's nodes and vacuum disc disease. Broad-based disc bulge at T7-T8 without significant central canal stenosis. Broa d based disc bulge at T11-T12 without significant central canal stenosis. Mild right neural frontal s tenosis at T10-T11 and bilaterally at T11-T12. I do not see any evidence of extradural defects nor significant spinal canal narrowing at any thoraci c vertebral body level. Centrilobular emphysematous changes. Stable remote fracture of the C7 spinous process. Lumbar: Alignment: There are 5 lumbar type vertebral bodies with mild retrolisthesis of L1 on L2. Bone: No evidence of fracture is identified. Increased size of 1.2 cm right iliac bone intraosseous pneumatocyst abutting the SI joint. Contains soft tissue and gas. Discs: Multilevel Schmorl's nodes. T12-L1: No spinal canal or neural foraminal stenosis is identified. L1-L2: No spinal canal stenosis. Retrolisthesis with mild bilateral neural foraminal narrowing. L2-L3: No spinal canal or neural foraminal stenosis is identified. L3-L4: No spinal canal or neural foraminal stenosis is identified. L4-L5: Broad-based disc bulge without significant effacement of the anterior thecal sac. Bilateral f acet arthropathy with minimal left neural foraminal stenosis. The right neural foramen is patent. L5-S1: No spinal canal stenosis. Bilateral facet arthropathy with mild left neural foraminal stenosis . The right neural foramen is patent. Other: None IMPRESSION: 1. No evidence of acute fracture. 2. Mild multilevel degenerative disease and facet arthropathy as described above. No significant cent ral canal stenosis. 3. Mild retrolisthesis of L1 on L2.
== END | disposition home or self-care (01) ==
LOC: RADCTMAIN 12:01
PROVIDERS: ATTEND Family Medicine
DX: M51.36 Other intervertebral disc degeneration, lumbar region (principal); M43.16 Spondylolisthesis, lumbar region; M47.816 Spondylosis without myelopathy or radiculopathy, lumbar region; R26.81 Unsteadiness on feet
CPT/HCPCS: 72128; 72131

== ENCOUNTER → 2024-03-26 | Outpatient (CLI) | payer MEDICARE, OTHER ==
--- NOTE | 2024-03-26 10:44 | CT ---
EXAMINATION TYPE: CT abdomen pelvis wo con DATE OF EXAM: 03/26/2024 HISTORY: flank pain. no hx of stones CT DLP: 547.8 mGycm. Automated Exposure Control for Dose Reduction was Utilized. TECHNIQUE: CT scan of the abdomen and pelvis is performed without oral or IV contrast. COMPARISON: 06/08/2020 FINDINGS: Within the limitations of a non-contrast study, the following observations are made. LUNG BASES: Correlate for underlying COPD. Right hemidiaphragm slightly elevated. Subsegmental basila r scarring or atelectasis. Trace of pericardial fluid. Liver upper limits of normal in size measuring 16.5 cm. Correlate for underlying hepatic steatosis or hepatocellular disease. Punctate granuloma wi thin the left lobe of the liver. LIVER/GB: Postcholecystectomy changes.. PANCREAS: No significant abnormality is seen. SPLEEN: Spleen normal in size. Accessory splenule.. ADRENALS: No significant abnormality is seen. KIDNEYS: No hydronephrosis or nephrolithiasis. There is a 2.9 cm lower pole simple appearing Bosniak classification 1 right renal cyst measuring 5 Hounsfield units. Nonspecific perinephric edema or stra nding. BOWEL: No significant abnormality is seen. GENITAL ORGANS: Prostate enlarged measuring 5.7 cm. LYMPH NODES: No greater than 1cm abdominal or pelvic lymph nodes are appreciated. OSSEOUS STRUCTURES: Multilevel hypertrophic and degenerative changes of the spine. Mild bilateral hip arthropathy. Air attenuation within the right iliac bone is nonspecific but likely benign. OTHER: Bladder is incompletely distended and limited. No obvious calcifications. Mild wall thickening can be associated with chronic cystitis or incomplete distention. Small fat-containing inguinal hernia. No inflammation.. IMPRESSION: 1. No renal stones or hydronephrosis is seen bilaterally. Mild perinephric stranding is nonspecific c ould be seen with chronic medical renal disease or infection. Mild bladder wall thickening could be secondary to incomplete distention. Correlate clinically to exc lude mild cystitis. 3. Prostatomegaly. [facility], , 03/26/2024 10:42 AM
== END | disposition home or self-care (01) ==
LOC: RADCTMAIN 07:54
PROVIDERS: ATTEND Family Medicine
DX: N20.0 Calculus of kidney
CPT/HCPCS: 74176